=== PATIENT | male | born 1945 ===

== ENCOUNTER 2023-10-12 06:56 | Day surgery (SDC) | payer OTHER ==
[2023-10-12] MEDS ORDERED: fentaNYL CITRATE 50 MCG/ML AMPUL IV ONE (10:00)
[2023-10-12] MEDS ORDERED: MIDAZOLAM HCL 2 MG/2 ML VIAL IV ONE (10:00)
[2023-10-12] MEDS ORDERED: DIPHENHYDRAMINE HCL 50 MG/ML VIAL 1ML IV ONE (10:00)
== END 2023-10-12 11:20 | disposition home or self-care (01) ==
LOC: AMB-ENDOS 06:56
PROVIDERS: ATTEND Surgery
DX: K63.5 Polyp of colon (principal); K62.5 Hemorrhage of anus and rectum; R19.4 Change in bowel habit; K64.8 Other hemorrhoids